=== PATIENT | male | born 1975 | race Caucasian/White ===

== ENCOUNTER 2017-04-19 01:00 | Emergency (ER) | payer OTHER ==
[~2017-04-19] VITALS: Ht 180.3 cm; Wt 92.4 kg
[~2017-04-19 01:00] MED LIST: ADVIL,NUPRIN,M200 MG PO; AMLODIPINE BESYL5 MG PO; ASPIRIN EC325 MG PO; ASPIRIN81 M1 PO; B12 5,000 MCG1 EACH SL; BENADRYL25 MG PO; BENZONATATE200 MG PO; CENTRUM MEN'S1 EACH PO; CHERATUSSIN AC473 ML PO; CLONIDINE HCL0.2 MG PO; COLCRYS0.6 MG PO; EPIPEN ADU0.3 MG/0.3 IM; FENOFIBRATE160 M1 PO; FISH OIL SOFTG1 EACH PO; HYCODAN SYRUP480 ML PO; IBUPROFEN600 MG PO; LEVOFLOXACIN500 MG PO; LISINOPRIL-HCT1 EAC3 PO; LISINOPRIL40 MG PO; LOPERAMIDE2 M1 PO; LOPRESSOR25 MG PO; LORTAB 5-325 M1 EACH PO; METHOCARBAMOL750 MG PO; METOPROLOL TART25 MG PO; MOTRIN600 MG PO; MULTIVITAMIN1 EAC2 PO; POTASSIUM-9999 MG PO; PRAVASTATIN SOD80 MG PO; PREDNISONE20 MG PO; PRINIVIL20 MG PO; PROAIR HFA8.5 GM IH; PROBIOTIC1 EAC1 PO; SYMBICORT60 INHALA1 IH; THERAGRAN1 TABLET PO; VENTOLIN HFA18 GM IH; VENTOLIN17 GM IH; VICODIN,LORT1 TABLET PO; VITAMIN D1000 INTUN PO; VITAMIN D250000 UNIT PO; ZITHROMAX Z-PA250 MG PO; ZOFRAN4 MG PO; ZYRTEC10 M3 PO; Zestril,Prinivil PO; [UNRECOGNIZED DRUG - REMARK]
[2017-04-19 01:29] LABS: HEMATOCRIT 45.8 % (38.0-50.0); MCH 31.3 PG (29.0-34.0); MCHC 35.4 G/DL (30.0-36.0); MCV 88.4 FL (86-99); PLATELET COUNT 203 K/uL (156-360); RBC DIS.WIDTH-CV 12.5 % (11.8-14.6); RBC DIS.WIDTH-SD 40.8 % (39-53); RED BLOOD COUNT 5.18 M/uL (4.00-5.50); WHITE BLOOD COUNT 4.6 K/uL (4.1-10.2)
[2017-04-19 01:41] LABS: CHLORIDE 106 mEq/L (99-109); POTASSIUM 4.1 mEq/L (3.7-5.4); SODIUM 142 mEq/L (136-147)
[2017-04-19 01:44] LABS: GLUCOSE 121 mg/dL (70-99)
[2017-04-19 01:45] LABS: ANION GAP 16 MEQ/L (2-14)
[2017-04-19 01:46] LABS: TOTAL BILIRUBIN 0.4 mg/dL (0.0-1.0)
[2017-04-19 01:47] LABS: ALKALINE PHOSPHATASE 53 IU/L (3-129); SERUM ETHYL ALCOHOL 281 mg/dL
[2017-04-19 01:48] LABS: GFR ESTIMATE (CALCULATED) > 59 mL/min/
[2017-04-19 01:49] LABS: UREA NITROGEN (BUN) 20 mg/dL (9-23)
[2017-04-19 01:50] LABS: TROP-I INTERPRETATION NEGATIVE; TROPONIN-I < 0.01 ng/mL (0.0-0.30)
[2017-04-19 01:51] LABS: LIPASE 24 U/L (1.0-51.0)
[2017-04-19 04:47] LABS: TROP-I INTERPRETATION NEGATIVE; TROPONIN-I < 0.01 ng/mL (0.0-0.30)
[2017-04-19] MEDS ORDERED: FLEXERIL10 MG PO (04:50)
[2017-04-19 05:41] VITALS: BP 105/69
== END 2017-04-19 05:42 | disposition home or self-care (01) ==
LOC: EME 01:00
PROVIDERS: Emergency Medicine
DX: M54.6 Pain in thoracic spine (principal); G89.29 Other chronic pain; R07.89 Other chest pain; F10.129 Alcohol abuse with intoxication, unspecified; I10 Essential (primary) hypertension; J45.909 Unspecified asthma, uncomplicated; I25.2 Old myocardial infarction; Z87.891 Personal history of nicotine dependence
CPT/HCPCS: 71010; 80053; 83690; 84484; 85027; 93005; 99281; 99284; G0480; J2270; J2405; J7030

== ENCOUNTER 2017-06-17 22:16 | Emergency (ER) | payer SELFPAY ==
[~2017-06-17] VITALS: Ht 180.3 cm; Wt 95.5 kg
[~2017-06-17 22:16] MED LIST changes: +FLEXERIL10 MG PO
[2017-06-18 01:13] VITALS: BP 145/82
== END 2017-06-18 01:17 | disposition home or self-care (01) ==
LOC: EME 22:16
DX: S09.90XA Unspecified injury of head, initial encounter (principal); S50.12XA Contusion of left forearm, initial encounter; M25.532 Pain in left wrist; M79.642 Pain in left hand; M54.2 Cervicalgia; W01.0XXA Fall on same level from slipping, tripping and stumbling without subsequent striking against object, initial encounter; I10 Essential (primary) hypertension; J45.909 Unspecified asthma, uncomplicated
CPT/HCPCS: 70450; 72125; 73090; 73130; 99281; 99283

== ENCOUNTER 2017-08-14 18:29 | Observation (INO) | payer SELFPAY ==
[~2017-08-14] VITALS: Ht 180.3 cm; Wt 98.1 kg
[2017-08-14 19:39] LABS: HEMATOCRIT 47.6 % (38.0-50.0); HEMOGLOBIN 17.1 G/DL (12.5-16.6); MCH 31.4 PG (29.0-34.0); MCHC 35.9 G/DL (30.0-36.0); MCV 87.3 FL (86-99); PLATELET COUNT 224 K/uL (156-360); RBC DIS.WIDTH-CV 12.7 % (11.8-14.6); RED BLOOD COUNT 5.45 M/uL (4.00-5.50); WHITE BLOOD COUNT 5.8 K/uL (4.1-10.2)
[2017-08-14 19:51] LABS: CHLORIDE 104 mEq/L (99-109); POTASSIUM 4.2 mEq/L (3.7-5.4); SODIUM 139 mEq/L (136-147)
[2017-08-14 19:52] LABS: MAGNESIUM 2.4 mg/dL (1.3-2.7)
[2017-08-14 19:53] LABS: GLUCOSE 93 mg/dL (70-99)
[2017-08-14 19:56] LABS: SERUM ETHYL ALCOHOL 261 mg/dL
[2017-08-14 19:57] LABS: CREATININE 0.9 mg/dL (0.6-1.3); GFR ESTIMATE (CALCULATED) > 59 mL/min/ (58.99-99999)
[2017-08-14 19:58] LABS: UREA NITROGEN (BUN) 15 mg/dL (9-23)
[2017-08-14 19:59] LABS: TROP-I INTERPRETATION NEGATIVE; TROPONIN-I < 0.01 ng/mL (0.0-0.30)
[2017-08-14 20:44] LABS: APPEARANCE CLEAR ((CLEAR)); BILIRUBIN NEGATIVE; BLOOD NEGATIVE; COLOR YELLOW ((YELLOW)); GLUCOSE (STRIP) NEGATIVE; KETONES 5; LEUKOCYTES NEGATIVE; NITRITE NEGATIVE; PROTEIN (STRIP) 30; SPECIFIC GRAVITY 1.011 (1.000-1.030); UROBILINOGEN 0.2 MG/DL (0.2-1.0)
[2017-08-14 20:54] LABS: AMPHETAMINE NEGATIVE (500 ng/mL); BARBITURATES NEGATIVE (200 ng/mL); BENZODIAZEPINES NEGATIVE (150 ng/mL); BUPRENORPHINE NEGATIVE (10 ng/mL); COCAINE NEGATIVE (150 ng/mL); METHADONE NEGATIVE (200 ng/mL); METHAMPHETAMINE NEGATIVE (500 ng/mL); OPIATES (MORPHINE) NEGATIVE (100 ng/mL); OXYCODONE NEGATIVE (100 ng/mL); PHENCYCLIDINE NEGATIVE (25 ng/mL); PROPOXYPHENE NEGATIVE (300 ng/mL); THC CANNABINOIDS NEGATIVE (50 ng/mL); TRICYCLIC ANTIDEPRESSANTS NEGATIVE (300 ng/mL)
[2017-08-14] MEDS ORDERED: LISINOPRIL-HCT1 EAC3 PO (21:33)
[2017-08-15 01:42] VITALS: BP 111/69
[2017-08-15 03:30] LABS: HEMATOCRIT 45.2 % (38.0-50.0); HEMOGLOBIN 15.8 G/DL (12.5-16.6); MCH 30.8 PG (29.0-34.0); MCV 88.1 FL (86-99); PLATELET COUNT 232 K/uL (156-360); RBC DIS.WIDTH-CV 12.8 % (11.8-14.6); RBC DIS.WIDTH-SD 41.3 % (39-53); RED BLOOD COUNT 5.13 M/uL (4.00-5.50); WHITE BLOOD COUNT 4.6 K/uL (4.1-10.2)
[2017-08-15 03:35] LABS: CHLORIDE 103 mEq/L (99-109); POTASSIUM 3.5 mEq/L (3.7-5.4); SODIUM 138 mEq/L (136-147)
[2017-08-15 03:39] LABS: GLUCOSE 119 mg/dL (70-99)
[2017-08-15 03:41] LABS: CREATININE 0.9 mg/dL (0.6-1.3); GFR ESTIMATE (CALCULATED) > 59 mL/min/ (58.99-99999)
[2017-08-15 03:42] LABS: UREA NITROGEN (BUN) 15 mg/dL (9-23)
[2017-08-15 03:51] LABS: TROP-I INTERPRETATION NEGATIVE; TROPONIN-I < 0.01 ng/mL (0.0-0.30)
[2017-08-15 04:14] VITALS: BP 110/58
[2017-08-15 07:40] VITALS: BP 129/74
[2017-08-15] MEDS ORDERED: ROBITUSSIN DM118 ML PO (09:03)
[2017-08-15] MEDS ORDERED: ASPIR-LOW81 MG PO (09:07)
[2017-08-15] MEDS ORDERED: TESSALON PERLE100 MG PO (09:07)
[2017-08-15 10:00] LABS: TROP-I INTERPRETATION NEGATIVE; TROPONIN-I < 0.01 ng/mL (0.0-0.30)
== END 2017-08-15 11:23 | disposition home or self-care (01) ==
LOC: EME 18:29 → EDOF 22:59 → ENRESERV 23:03 → 5WEST 08-15 01:07
PROVIDERS: Nurse Practitioner Adult Health; Physician Assistant
DX: R07.81 Pleurodynia (principal); G43.909 Migraine, unspecified, not intractable, without status migrainosus; R93.0 Abnormal findings on diagnostic imaging of skull and head, not elsewhere classified; F10.21 Alcohol dependence, in remission; I10 Essential (primary) hypertension; T46.5X6A Underdosing of other antihypertensive drugs, initial encounter; Z91.128 Patient's intentional underdosing of medication regimen for other reason; J45.909 Unspecified asthma, uncomplicated; F32.9 Major depressive disorder, single episode, unspecified; Z88.0 Allergy status to penicillin; Z88.6 Allergy status to analgesic agent; Z91.030 Bee allergy status; Z91.013 Allergy to seafood
CPT/HCPCS: 70496; 70498; 70551; 71045; 71275; 80048; 81003; 83735; 84484; 85027; 93005; 94640; 94799; 99281; 99285; G0378; G0480; J2270; J7030

== ENCOUNTER 2017-10-30 23:06 | Emergency (ER) | payer OTHER ==
[~2017-10-30] VITALS: Ht 177.8 cm; Wt 98.2 kg
[~2017-10-30 23:06] MED LIST changes: +ASPIR-LOW81 MG PO; +ROBITUSSIN DM118 ML PO; +TESSALON PERLE100 MG PO
[2017-10-31] MEDS ORDERED: NORCO 5/3251 TABLET PO (00:19)
[2017-10-31 00:57] VITALS: BP 154/74
== END 2017-10-31 00:59 | disposition home or self-care (01) ==
LOC: EME 23:06
DX: S86.811A Strain of other muscle(s) and tendon(s) at lower leg level, right leg, initial encounter (principal); S93.401A Sprain of unspecified ligament of right ankle, initial encounter; W18.42XA Slipping, tripping and stumbling without falling due to stepping into hole or opening, initial encounter; X50.1XXA Overexertion from prolonged static or awkward postures, initial encounter; Z88.0 Allergy status to penicillin
CPT/HCPCS: 73564; 73610; 99281; 99283

== ENCOUNTER 2018-01-26 17:31 | Emergency (ER) | payer OTHER ==
[~2018-01-26] VITALS: Ht 175.3 cm; Wt 88.8 kg
[~2018-01-26 17:31] MED LIST changes: +NORCO 5/3251 TABLET PO
[2018-01-26] MEDS ORDERED: MOTRIN800 MG PO (19:50)
[2018-01-26] MEDS ORDERED: ATIVAN2 MG PO (19:50)
[2018-01-26] MEDS ORDERED: PREDNISONE20 MG PO (19:50)
[2018-01-26 20:15] VITALS: BP 151/112
== END 2018-01-26 20:16 | disposition home or self-care (01) ==
LOC: EME 17:31
DX: S33.5XXA Sprain of ligaments of lumbar spine, initial encounter (principal); X50.0XXA Overexertion from strenuous movement or load, initial encounter; Y93.89 Activity, other specified; I10 Essential (primary) hypertension; J45.909 Unspecified asthma, uncomplicated; Z88.0 Allergy status to penicillin; Z88.1 Allergy status to other antibiotic agents
CPT/HCPCS: 72100; 99281; 99285; J1885; J2060; J7512